=== PATIENT | male | born 1940 | race Asian ===

== ENCOUNTER 2018-08-10 01:58 | Inpatient (IN) | payer OTHER ==
[~2018-08-10] VITALS: Ht 175.3 cm; Wt 49.0 kg
[2018-08-10] VITALS (10 sets, daily range): BP systolic 76–121; BP diastolic 41–75
--- NOTE | 2018-08-10 02:30 | NUR ---
PATIENT WAS BROUGHT IN BY EMS, FAMILY CALLED [phone] BECAUSE PATIENT HAS TEMP OF 104 AT HOME AND OXYGEN LEVEL WAS LOW PER FAMILY. PATIENT ARRICVED WITH BREATHING TX IN PROGRESS, SATURATION 94 % ON 6 L OXYGEN VIA MASK. SALINE LOCK IN PLACE . FLORES IN PLACE. CHANGE ON SUNDAY PER FAMILY. G-TUBE IN PLACE.
--- NOTE | 2018-08-10 02:45 | NUR ---
URINE COLLECTED AND SENT TO THE LAB. PATIENT MEDICATED WITH TYLENOL VIA THE G-TUBE.
--- NOTE | 2018-08-10 03:00 | NUR ---
CALLED TO Pt'S ROOM TO SUCTION PER FAMILY REQUEST. LOCKED JAW IS NOTED, Pt IS THEN NTS'D USING STERILE TECHNIQUE. SMALL/MODERATE AMOUNT OF THICK CLEAR AND WHITE SPUTUM OBTAINED. FAMILY REQUESTS ORAL SUCTION, I THEN MASSAGED Pt'S JAW TO RELAX AND OPEN MOUTH, Pt RELAXES JAW AND Pt IS SUCTIONED WITH YANKAUER WITH NO RETURN. Pt'S DAUGHTER STATES THAT SHE USES A RED MAKEDA TO SUCTION Pt EVERY TIME HE COUGHS, RED MAKEDA BROUGHT TO FAMILY, FAMILY REQUESTS TO USE EQUIPMENT FROM HOME, PERMISSION OBTAINED FROM PHYSICIAN. Pt WAS RECEIVED ON AERSOL MASK AND WAS CHANGED TO A 6L SIMPLE MASK BY MYSELF. RN NOTIFIED. NO RESP DISTRESS NOTED, WILL MONITOR.
[2018-08-10 03:08] LABS: PLATELET COUNT 161 x10^3mcL (130-400)
[2018-08-10 03:09] LABS: microscopic required? YES; urine erythrocyte 1+ (NEGATIVE)
[2018-08-10 03:12] LABS: RED CELL DISTRIBUTION WIDTH 31.3 % (11.5-14.5)
--- NOTE | 2018-08-10 03:17 | NUR ---
FAMILY REQUESTED RESPIRATORY TO SUCTION THE PATIENT RT WAS CALLED,PATIENT SUCTION. PATIENT HAS A CONGESTED COUGH.
--- NOTE | 2018-08-10 03:19 | NUR ---
BLOOD WAS DRAWN BY LAB, FAMILY EXPRESS CONCERN, PATIENT HAD ANEAMIA AND TOO MUCH BLOOD IS TAKE. SPOKE TO THE FAMILY.
--- NOTE | 2018-08-10 03:25 | NUR ---
Pt'S SPO2 98% ON 5LPM SIMPLAE MASK.
[2018-08-10 03:29] LABS: ATYPICAL LYMPH 1 %; BAND NEUTROPHIL 3 % (0-10); MONOCYTE 1 % (0-7); SEGMENTED NEUTROPHILS 93 % (37-75)
[2018-08-10 03:33] LABS: ovalocyte/elliptocyte 1+; rbc morphology (normal/abnorm) ABNORMAL (NORMAL); schistocyte (helmet cell) 1+; target cell (codocyte) 1+; tear drop cell (dacryocyte) 1+
[2018-08-10 03:34] LABS: PLATELET MORPHOLOGY PLATELETS NORMAL
[2018-08-10] MEDS ORDERED: ROB1 PO (04:15)
[2018-08-10] MEDS ORDERED: COREG3.125 MG GT (04:16)
[2018-08-10] MEDS ORDERED: PHARMASSURE FO0.4 MG (04:17)
[2018-08-10] MEDS ORDERED: LIPI10 PO (04:17)
[2018-08-10] MEDS ORDERED: SOD1 PO (04:18)
[2018-08-10 05:16] LABS: ALBUMIN 3.3 g/dL (3.4-5.0); ALKALINE PHOSPHATASE 54 U/L (46-116); ALT/SGPT 10 U/L (14-59); AST/SGOT 15 U/L (15-37); BILIRUBIN TOTAL 2.06 mg/dL (0.20-1.00); CALCIUM 8.6 mg/dL (8.5-10.1); CHLORIDE SERUM 87 mmol/L (98-107); CREATININE SERUM 0.7 mg/dL (0.6-1.0); GLUCOSE SERUM 172 mg/dL (74-106); POTASSIUM SERUM 4.8 mmol/L (3.5-5.1); TOTAL PROTEIN, SERUM 7.4 g/dL (6.4-8.2)
[2018-08-10 05:18] LABS: SODIUM SERUM 123 mmol/L (136-145)
--- NOTE | 2018-08-10 05:40 | NUR ---
ABG DRAWN ON RA, SPO2 96%, Pt PLACED ON 2L N/C. RN NOTIFIED.
--- NOTE | 2018-08-10 05:45 | NUR ---
RECEIVED PT FROM ED VIA GURNEY ACCOMPANIED BY NURSE. DAUGHTERS, STEPHANI AND ALEX AT BEDSIDE. 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 PULSES PRESENT AND EQUAL THROUGHOUT, NO EDEMA NOTED. BREATHING ON 2L NC, SHALLOW AND EQUAL, O2 SAT 93% LUNGS SOUNDS CONGESTED WITH CRACKLES. DAUGHTER STATES PT USES O2 AT HOME, ANYWHERE FROM 1L-10L, TITRATED BY FAMILY DEPENDING ON HIS O2 SAT. ABD SOFT AND FLAT WITH ACTIVE BOWEL SOUNDS. PEG TUBE IN PLACE, STOMA WNL. DAUGHTER STATES PT RECEIVED BOLUS FEEDING OF PORRIDE OF GLUCERNA Q2-3H. LAST BM YESTERDAY, 08/09/18, NORMAL. FLORES CATH IN PLACE DRAINING YELLOW URINE TO GRAVITY. DAUGHTER STATES PT HAS A HOME HEALTH NURSE THAT CHANGES THE FLORES Q2 WEEKS, LAST CHANGED ON Sunday08/06/18. PT IS BED BOUND SINCE STROKE, TOTAL CARE, TURN Q2H, AIR MATTRESS IN PLACE. SKIN TEAR/OPEN WOUND TO COCCYX, DAUGHTER STATES THEY USE Z GAURD AT HOME. WHILE ATTEMPTING TO TAKE A PHOTO, PT BEGAN TO DESATURATE AND DAUGHTER REQUESTED TO HOLD OFF AT THIS TIME AND RAISE HIM UP, WHICH WAS DONE. IV TO LH IN PLACE, DRY, PATENT, INTACT. CONNECTED TO VANCO AND SECOND LITER NS BOLUS CONTINUED FROM ED, NO PAIN, REDNESS, OR SWELLING NOTED. FAMILY ORIENTED TO ROOM AND CALL LIGHT. BED IN LOWEST POSITION WITH SIDE RAILS UP X2. COMFORT AND SAFETY MEASURES INITIATED.
--- NOTE | 2018-08-10 05:54 | NUR ---
REPORT WAS GIVEN. ANTIBIOTIC STARTED. PATIENT TRANSPORTED TO ROOM 210A. RESPIRATORY DECREASED OXYGEN T 2 LN/C ON THE ABG RESULT.
--- NOTE | 2018-08-10 06:40 | NUR ---
DR. CHAD RAGSDALE AWARE, B/P AFTER 2ND NS BOLUS 76/41. ORDERS FOR ANOTHER 1L NS BOLUS AND CARRIED OUT AT THIS TIME. PT ON 8L NC, O2 SAT 98% DR. MARROQUIN AT BEDSIDE AT THIS TIME.
--- NOTE | 2018-08-10 06:45 | NUR ---
PT'S DAUGHTER REQUESTING FOR MORE BLANKETS, ONE BLANKET PROVIDED. EDUCATED NOT TO APPLY TOO MANY BLANKETS DUE TO KEEPING COOLING MEASURES IN PLACE SINCE PT'S TEMP WAS ELEVATED. DAUGHTER VERBALIZED UNDERSTANDING
--- NOTE | 2018-08-10 07:20 | NUR ---
PT'S DAUGHTER AT BEDSIDE TITRATED O2 TO 4L NC, O2 SAT 99%
[2018-08-10 07:24] LABS: IRON 29 ug/dL (65-170); TOTAL IRON BINDING CAPACITY 83 ug/dL (250-450)
--- NOTE | 2018-08-10 07:40 | NUR ---
PATIENT RESTING IN BED. NO RESPIRATORY DISTRESS NOTED. PATIENT ON 4L NASAL CANNULA. PATIENT IS APHASIC, UNABLE TO ASSESS ORIENTATION, PATIENT APPEARS ALERT. TELE MONITOR IN PLACE. PATIENT SOUNDS CONGESTED, SUCTIONED NEEDED. PT IS ON PEG TUBE FEEDINGS, GLUCERNA GIVEN AT 3OML/HR. PATIENT HAS A FLORES DRAINING TO GRAVITY. GENERALIZED WEAKNESS NOTED, PATIENT HAS HX OF HEMORRHAGIC STROKE, L SIDE PARALYSIS. PATIENT IS ON AIR MATRESS, PATIENT REPOSITION Q2HR. NS IV INFUSING TO L HAND AT 100ML/HR, NO ERYTHEMA, EDEMA, OR PAIN NOTED. CALL LIGHT WITHIN REACH, BED IN LOW POSITION, WILL CONTINUE TO MONITOR FOR CHANGES.
--- NOTE | 2018-08-10 08:10 | NUR ---
1L BOLUS DONE, B/P 101/53
--- NOTE | 2018-08-10 08:55 | NUR ---
PATIENT RECEIVED A 1L BOLUS FROM PREVIOUS RN JEROD, REASSESSED PATIENT VITAL SIGNS. PATIENT BP 108/55, HR 96, MAP 75. PATIENT IS STABLE AT THIS TIME, NO ACUTE DISTRESS NOTED. WILL CONTINUE TO MONITOR FOR CHANGES.
[2018-08-10 09:21] LABS: BASOPHIL % 0 % (0-2); PLATELET COUNT 89 x10^3mcL (130-400)
[2018-08-10 09:37] LABS: CALCIUM 7.4 mg/dL (8.5-10.1); CARBON DIOXIDE 23.3 mmol/L (21-32); CHLORIDE SERUM 95 mmol/L (98-107); CREATININE SERUM 0.6 mg/dL (0.7-1.3); GLUCOSE SERUM 147 mg/dL (74-106); MAGNESIUM 1.7 mg/dL (1.8-2.4); PHOSPHOROUS 2.2 mg/dL (2.5-4.9); POTASSIUM SERUM 3.9 mmol/L (3.5-5.1); SODIUM SERUM 127 mmol/L (136-145)
--- NOTE | 2018-08-10 09:40 | NUR ---
FAMILY TITRATED PATIENT NASAL CANNULA FROM 4L TO 3L, PATIENT TOLERATING WELL. PULSE OX 99%. WILL CONTINUE TO MONITOR FOR CHANGES.
--- NOTE | 2018-08-10 13:40 | NUR ---
DR BONILLA AWARE PATIENT NA IS 127, PREVIOUS WAS 123, CL IS 97, PREVIOUS WAS 87, CA IS 7.4,PHOS IS 2.2, AND MAG IS 1.7. DR BONILLA WILL REVIEW LABS AND PLACE ORDERS. WILL CARRY OUT ORDERS.
--- NOTE | 2018-08-10 14:11 | NUR ---
PATIENT RESTING IN BED, NO RESPIRATORY DISTRESS NOTED. FAMILY AT BEDSIDE. CALL LIGHT WITHIN REACH, BED IN LOW POSITION, WILL CONTINUE TO MONITOR.
--- NOTE | 2018-08-10 15:17 | NUR ---
PT FAMILY REFUSED TX AT THIS TIME STATED PT DID NOT NEED IT. PT'S DAUGHTER TITRATED O2 TO 0.5L/M ON NC AND HUMIDIFIER WAS ADDED AT THIS TIME. PT IN NO RESPIRATIORY DISTRESS POX 100% ON 0.5L. WILL CONTINUE TO MONITOR.
--- NOTE | 2018-08-10 18:20 | NUR ---
ASSESS PATIENT VITAL SIGNS BP 88/47 HR [address] TIM. WILL CONTINUE TO MONITOR PATIENT.
--- NOTE | 2018-08-10 18:40 | NUR ---
DR GARCÍA AWARE OF PATIENT BP. DR REYNOLDS WILL REVIEW PATIENT CHART. WILL CONTINUE TO MONITOR PATIENT.
--- NOTE | 2018-08-10 19:20 | NUR ---
PATIENT RESTING IN BED, FAMILY AT BEDSIDE. PATIENT BP WAS 93/45 HR 73 MAP 62. NO ACUTE DISTRESS NOTED. DR. REYNOLDS AT BEDSIDE. NS IV INFUSING TO LH AT 100ML/HR, NO REDNESS, SWELLING OR PAIN NOTED. PEG TUBE FEEDING AT 30ML/HR. HOB ELEVATED. ENDORSE REPORT TO NIGHT NURSE.
--- NOTE | 2018-08-10 19:40 | NUR ---
RECEIVED PT IN BED W/ FAMILY MEMBERS AT BEDSIDE. PER FAMILY PT IS ORIENTED TO PERSON,PLACE AND SITUATION. PT IS NON-VERBAL. HE HAS LEFT SIDE WEAKNESS. PT ABLE TO WAVE HIS RT HAND. LUNG SOUNDS CONGESTED. ON O2 AT 1L VIA N/C. W/ PEG TUBE IN PLACE W/ FEEDING OF GLUCERNA AT 30 CC/HR . PT HAS NO C/O PAIN AT THIS TIME. W/ FLORES CATH INTACT DRAINING YELLOW URINE. IVF NS INFUSING AT 100 CC/HR VIA LT HAND. CALL LIGHT W/IN REACH. PT IS ON AIR MATTRESS.
--- NOTE | 2018-08-11 02:10 | NUR ---
GT RESIDUAL CHECKED AND OBTAINED 5 CC. PT APPEARS TO BE SLEEPING COMFORTABLY. FAMILY MEMBERS AT BEDSIDE.
[2018-08-11 05:18] VITALS: BP 122/55
--- NOTE | 2018-08-11 05:19 | NUR ---
PT SLEPT IN LONG INTERVALS. NO EPISODE OF RESP. DISTRESS. HE HAD NO C/O PAIN . PT TOLERATING FEEDING AT 30 CC/HR. HE HAD LIQUID BM X2 THIS SHIFT. IVF NS INFUSING WELL AT 100 CC/HR VIA LT HAND. FLORES CATH INTACT AND PATENT. FAMILY REMAINS AT BEDSIDE.
--- NOTE | 2018-08-11 07:40 | NUR ---
PATIENT IS SLEEPING IN BED, AROUSABLE. NO ACUTE RESP. DISTRESS NOTED, PATIENT ON .5L NASAL CANNULA. TELE MONITOR IN PLACE. PATIENT IS CONGESTED AT TIME, WILL SUUCTION NEEDED. PEG TUBE FEEDING OF GLUCERNA INFUSING AT 30ML/HR. PATIENT TOLERATING TUBE FEEDING, 2ML RESIDUAL NOTED AND REPLACED. FLORES CATHETER DRAINING TO GRAVITY. GENERALIZED WEAKNESS NOTED, WITH LEFT SIDE PARALYSIS, PATIENT REPOSITIONED Q2HR, AIR MATRESS IN PLACE. NS IV INFUSING AT 100 ML/HR TO LEFT HAND, NO REDNESS, SWELLING OR PAIN NOTED. CALL LIGHT WITHIN REACH, BED IN LOW POSITION, WILL CONTINUE TO MONITOR.
[2018-08-11 07:51] LABS: CALCIUM 7.6 mg/dL (8.5-10.1); CARBON DIOXIDE 24.8 mmol/L (21-32); CHLORIDE SERUM 104 mmol/L (98-107); CREATININE SERUM 0.6 mg/dL (0.7-1.3); GLUCOSE SERUM 123 mg/dL (74-106); MAGNESIUM 1.9 mg/dL (1.8-2.4); PHOSPHOROUS 2.3 mg/dL (2.5-4.9); POTASSIUM SERUM 3.5 mmol/L (3.5-5.1); SODIUM SERUM 136 mmol/L (136-145)
[2018-08-11 08:43] LABS: PLATELET COUNT 103 x10^3mcL (130-400); RED CELL DISTRIBUTION WIDTH 32.1 % (11.5-14.5)
[2018-08-11 10:03] VITALS: BP 110/50
[2018-08-11 12:23] LABS: ATYPICAL LYMPH 2 %; BAND NEUTROPHIL 0 % (0-10); BASOPHIL 0 % (0-2); MONOCYTE 16 % (0-7); SEGMENTED NEUTROPHILS 56 % (37-75); rbc morphology (normal/abnorm) ABNORMAL (NORMAL)
[2018-08-11 12:24] LABS: target cell (codocyte) 3+
[2018-08-11 13:31] VITALS: BP 120/57
--- NOTE | 2018-08-11 15:01 | NUR ---
PATIENT RESTING IN BED, NO ACUTE DISTRESS NOTED AT THIS TIME. PATIENT ON .5L NASAL CANNULA. FAMILY AT BEDSIDE. CALL LIGHT WITHIN REACH, BED IN LOW POSITION. WILL CONTINUE TO MONITOR PATIENT.
[2018-08-11 17:07] VITALS: BP 110/54
--- NOTE | 2018-08-11 17:24 | NUR ---
PATIENT FAMILY HAD QUESTIONS REGARDING DISCHARGE, DR. BONILLA STATED HE WANTED TO KEEP THE PATIENT OVER FOR OBSERVATION AND POSSIBLY GO HOME TOMORROW MORNING. FAMILY VERBLIZES UNDERSTANDING AND AGREES WITH PATIENTS PLAN OF CARE. WILL CONTINUE TO MONITOR. CALL LIGHT WITHIN REACH, BED IN LOW POSITION.
--- NOTE | 2018-08-11 18:24 | NUR ---
PATIENT RESTING IN BED, NO ACUTE DISTRESS NOTED THROUGH OUT SHIFT. PATIENT IS STABLE. TELE MONITOR IN PLACE. PATIENT ON .5L NC. PEG TUBE FEEDING INFUSING AT 40ML/HR, PATIENT TOLERATING WELL, NO RESIDUAL NOTED. PATIENT ON AIR MATRESS, REPOSTION Q2HR. NS IV INFUSING TO LH, IV PATENT, NO S/S OF INFILTRATION. CALL LIGHT WITHIN REACH, BED IN LOW POSITION, WILL CONTINUE TO MONITOR AND ENDORSE REPORT TO NIGHT NURSE.
--- NOTE | 2018-08-11 19:15 | NUR ---
RECEIVED REPORT FROM LAKSHMI TAYLOR. WILL CONTINUE TREATMENT AND CARE.
--- NOTE | 2018-08-11 19:35 | NUR ---
ASSESSED PT. PT IS APHASIC BUT ABLE TO GESTURE TO QUESTIONS. BREATHING EVEN AND UNLABORED. NO SOB NOTED. PT ON 0.5L NC. ON TELE MONITOR #25, NSR. NO S/SX OF PAIN OR DISCOMFORT NOTED. PULSES PALPABLE, CAP REFILL < 3 SEC. BS ACTIVE X 4. PT HAS PEG CONTINUOUS FEEDING OF GLUCERNA 1.2 RUNNING AT 40CC/HR WITH NO RESIDUAL NOTED. PT TOLERATING FEEDING WELL. GENERALIZED WEAKNESS. PT HAS SKIN TEAR TO COCCYX. FLORES CATHETER IN PLACE DRAINING VIA GRAVITY YELLOW URINE. IV FLUIDS OF NS 100C/HR TO L HAND. NO S/SX OF INFILTRATION OR PHLEBITIS NOTED. PT CALM AND FAMILY AT BEDSIDE. BED IN LOW POSITION. CALL LIGHT WITHIN REACH. WILL CONTINUE TO MONITOR.
[2018-08-11 21:08] VITALS: BP 122/65
--- NOTE | 2018-08-12 00:24 | NUR ---
PT HAS NO RESIDUAL NOTED TO TUBE FEEDING. INCREASED GLUCERNA 1.2 FROM 40CC TO 50CC/HR. PT TOLERATING FEEDING WELL.
--- NOTE | 2018-08-12 05:24 | NUR ---
PT RESTING COMFORTABLY IN BED. NO S/SX OF PAIN OR DISCOMFORT THROUGHOUT SHIFT. NO SOB OR RESPIRATORY DISTRESS NOTED. NO ADVERSE REACTIONS TO MEDICATIONS. IV FLUIDS OF NS REMAIN INFUSING AT 100CC/HR, INTACT AND PATENT. NO S/SX OF INFILTRATION OR PHLEBITIS NOTED. SUCTION CANNITER AND TUBING CHANGED. ALL NEEDS MET AND ANTICIPATED. FAMILY AT BEDSIDE. BED IN LOW POSITION. CALL LIGHT WITHIN REACH. WILL ENDORSE TO ONCOMING NURSE.
[2018-08-12 05:28] VITALS: BP 144/85
[2018-08-12 06:44] LABS: CALCIUM 7.9 mg/dL (8.5-10.1); CARBON DIOXIDE 25.1 mmol/L (21-32); CHLORIDE SERUM 105 mmol/L (98-107); CREATININE SERUM 0.6 mg/dL (0.7-1.3); GLUCOSE SERUM 145 mg/dL (74-106); MAGNESIUM 1.9 mg/dL (1.8-2.4); PHOSPHOROUS 2.2 mg/dL (2.5-4.9); POTASSIUM SERUM 3.7 mmol/L (3.5-5.1); SODIUM SERUM 138 mmol/L (136-145)
[2018-08-12 06:56] LABS: PLATELET COUNT 108 x10^3mcL (130-400); RED CELL DISTRIBUTION WIDTH 32.8 % (11.5-14.5)
--- NOTE | 2018-08-12 07:28 | NUR ---
GAVE REPORT TO SIMON TAYLOR. ALL QUESTIONS AND CONCERNS ADDRESSES.
[2018-08-12 08:25] VITALS: BP 148/80
[2018-08-12 12:05] LABS: BAND NEUTROPHIL 2 % (0-10); BASOPHIL 0 % (0-2); MONOCYTE 10 % (0-7); SEGMENTED NEUTROPHILS 79 % (37-75)
[2018-08-12 12:06] LABS: PLATELET MORPHOLOGY PLATELETS DECREASED; rbc morphology (normal/abnorm) ABNORMAL (NORMAL); target cell (codocyte) 1+
[2018-08-12 12:35] VITALS: BP 123/71
--- NOTE | 2018-08-12 14:15 | NUR ---
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) w R hemiparesis and L hemiplegia, Hep B, Thalassemia trait, HTN, Gout, BPH PSHx: Cystoscopy (negative) Labs: BG 145H, CA 7.9L, HGB 7.9L Meds: Colace, ferrous sulfate 300 mg liquid, folic acid 1mg, lipitor Diet: Gastrostomy tube: Glucerna 1.2 goal rate: 65 ml/hr, Free water flush 100ml q4hrs PO Intake: 780 ml of TF Ht:175.26 cm (69 in) Wt: 48.9 kg (107.6#0) BMI: 15.9 kg/m2 IBW: 160# %IBW: 67 UBW: 109# Age: 78/M Food Allergies: none Skin: skin tear noted to olayinka Kan: 14 Edema: none GI: Last BM: 08/11/18 Per H&P, pt is a 78 year old male admitted on 08/10/18 with oxygen saturation below 88%, difficulty breathing and elevated mucus production. Pt visit, pt was awake and patient's daughter was at bedside. Per daughter, patient had liquid bowel movement this morning and has an episode of diarrhea two days ago. Pt is currently getting Glucerna 1.2 @ 65 ml/hr, free water flush of 100 ml q 4 hrs and is tolerating it well. Patient's daughter reported that she is concerned about soy in Glucerna can impact patient DX of Gout. She has been given 50% of homemade rice based liquid for that reason and 50% Glucerna. Problem with: N/ V/ D/ C: none Problems with: Chewing: Swallowing: pt on G tube Recent wt change: 2 kgs %wt change: 1.3 % (unaware of duration) Vitamin/Supplement use: vitamin C, zinc, B12, Folic acid, B1, MVI, probiotic Special diet at home: on Tube feeding Physical activity: bed bound Education: No education given at this time. Estimated Nutritional Needs Based on actual body weight 48.9 kg Energy: 1467- 1712 kcal/d (30-35 kcal/kg-weight gain) Protein: 59- 73 g/d (1.2-1.5g/kg)-maintenance and preservation of lean body mass Fluid: 4498-5408 ml/d (1 ml/kcal-fluid balance) or per doctor Nutrition Diagnosis 1. Underweight related to medical condition as evidenced by BMI of 15.9 kg/m2 Intervention 1. Continue current TF program: Glucerna 1.2 @ 65 ml/hr. Provides 1870 kcal and 90 g of protein Monitor/Evaluate Goal: TF meeting at least 75 % of estimated needs Monitor: TF tolerance, Labs, GI function, check for residuals. F/U in 2-3 days as high risk. Due 08/14-08/15
--- NOTE | 2018-08-12 14:16 | NUR ---
1. Continue current TF program: Glucerna 1.2 @ 65 ml/hr. Provides 1870 kcal and 90 g of protein
--- NOTE | 2018-08-12 19:46 | NUR ---
LYING ON RIGHT SIDE. ON AIR MATTRESS POSITIONED W PILLOWS. NS INFUSING 100 CC HOUR. FAMILY CONCERNED ABOUT PTS BP GOING UP. SYSTOLIC 138. PT HAS HAD CVA IN PAST AND FAMILY IS CONCERNED. TURNED OFF PUMP AND WILL TALK TO [place] ABOUT CONTINUING INFUSION OR NOT. RECEIVING GT FEEDINGS. GLUCERNA 65 CC HOUR INFUSING 3 CC RESIDUAL. FLORES DRAINING YELLOW URINE. DOES NOT APPEAR TO BE IN PAIN. FAMILY PINA BEDSIDE AND VERY HELPFUL. HOB ELEVATED 35 DEGREES. ON AIR MATTRESS. CALL LIGHT WITHIN REACH.
--- NOTE | 2018-08-12 19:54 | NUR ---
PT HAS BEEN RESTING QUIETLY WITH MULTIPLE FAMILY FAMILY MEMBERS AT BEDSIDE, VERY ATTENTIVE. CONTINUE NS 10 AND ZOSYN IV ABX. GOOD OUTPUT IN FLORES. TOTAL CARE. TOLERATES GT FEEDINGS. VSS. CALL LIGHT WITHIN REACH OF FAMILY MEMBERS.
--- NOTE | 2018-08-12 20:00 | NUR ---
PT SEEN, HOB, RESTING IN BED WITH EYES CLOSED, APHASIC WITH HX OF CVA, BREATHING EVEN AND UNLABORED ON O2 2L VIA NC WITH NO RESP DISTRESS NOTED, LUNG SOUNDS DIMINISHED WITH EXP WHEEZING, RT PROTOCOL, ON TELE#25 NSR, IVF INFUSING WELL, PULSES PALPABLE, EDEMA NOTED TO BUE, GENERALIZED WEAKNESS, TOTAL CARE, ON AIR MATTRESS, ABD SOFT AND FLAT WITH ACTIVE BS, NO BM AT THIS TIME, ON G-TUBE FEEDING GLUCERNA 1.2 @ 65 ML/HR, WITH RESIDUAL 10 ML, ASP PRECAUTION IN PLACE, FLORES VIA GRAVITY DRAINING YELLOW URINE, NO DISTRESS NOTED, WILL KEEP TO MONITOR.
[2018-08-12 20:51] VITALS: BP 144/70
--- NOTE | 2018-08-13 | NUR ---
ROUNDS MADE, PT HOB, ASLEEP AND APPEARS COMFORTABLE, BREATHING EVEN AND UNLABORED ON O2 2L VIA NC WITH HUMIDIFIER, PT IS TOLERATING WELL WITH G-TUBE FEEDING @ 65 ML/HR, NO RESIDUAL NOTED.
--- NOTE | 2018-08-13 04:00 | NUR ---
ROUNDS MADE, HOB AT 60 DEGREES, BREATHING EVEN AND UNLABORED ON O2 2L VIA NC, TOLERATING WELL WITH G-TUBE FEEDING, NO RESIDUAL NOTED, NO DISTRESS NOTED, WILL KEEP TO MONITOR.
[2018-08-13 05:03] VITALS: BP 128/75
--- NOTE | 2018-08-13 06:28 | NUR ---
PT SEEN, RESTING IN BED WITH EYES CLOSED, BREATHING EVEN AND UNLABORED ON O2 2L VIA NC WITH NO RESP DISTRESS OR SOB NOTED, HAD ONE TIME SMALL LOOSE BM DURING THE SHIFT, GOOD ELIA CARE GIVEN, ON AIR MATTRESS, SUCTION PRN, FAMILY MEMBERS AT BEDSIDE, NO DISTRESS NOTED, WILL KEEP TO MONITOR.
[2018-08-13 06:34] LABS: PLATELET COUNT 162 x10^3mcL (130-400)
[2018-08-13 06:46] LABS: RED CELL DISTRIBUTION WIDTH 33.2 % (11.5-14.5)
[2018-08-13 06:48] LABS: CALCIUM 8.1 mg/dL (8.5-10.1); CARBON DIOXIDE 27.7 mmol/L (21-32); CHLORIDE SERUM 101 mmol/L (98-107); CREATININE SERUM 0.7 mg/dL (0.7-1.3); GLUCOSE SERUM 186 mg/dL (74-106); POTASSIUM SERUM 4.2 mmol/L (3.5-5.1); SODIUM SERUM 134 mmol/L (136-145)
--- NOTE | 2018-08-13 07:20 | NUR ---
RECEIVED PATIENT FROM DRESSING MACHINE OPERATOR NURSE. PATIENT IS RESTING WITH BOTH EYES CLOSED, AROUSABLE. TELE#25, SR, HR 87. PATIENT IS ON 2L NC, BREATHING APPEARS EVEN AND UNLABORED. AUDIBLE EXP WHEEZES NOTED, PATIENT ON RT PROTOCOL. LAST BM THIS AM, LARGE AND SOFT. FLORES CATHETER IN PLACE DRAINING YELLOW URINE TO GRAVITY WELL. PATIENT IS ON AIR MATTRESS WITH HOB ELEVATED, ASPIRATION PREC IN PLACE. IV NOTED TO RFA, IVF INFUSING WELL ORDERED, NO S/S ERYTHEMA AT SITE. TUBE FEEDING: GLUCERNA 1.2 INFUSING WELL AT 65ML/HR WITH FWF 100 Q4H, INFUSING WELL TO G-TUBE SITE LUQ. CALL LIGHT WITHIN EASY REACH. FALL AND SAFETY PREC IN PLACE. FAMILY AT THE BEDSIDE, HIGHLY INVOLVED IN CARE. ALL QUESTIONS ANSWERED AT THIS TIME. EXPLAINED PLAN OF CARE AND DISCUSSED GOALS FOR TODAY WITH FAMILY. WILL CONTINUE PLAN OF CARE.
--- NOTE | 2018-08-13 07:25 | NUR ---
BEDSIDE HANDOFF REPORT DONE WITH ADALID-RN, ALL QUESTIONS ANSWERED AND CONCERNS ADDRESSED.
--- NOTE | 2018-08-13 08:35 | NUR ---
TUBE FEEDING CHANGED AT THIS TIME. RESIDUAL <10. PATIENT TOLERATING WELL. RESUMED GLUCERNA 1.2 AT 65ML/HR WITH FWF 100CC Q4H. ASPIRATION PRECAUTIONS IN PLACE. WILL CONTINUE TO MONITOR.
[2018-08-13 10:06] VITALS: BP 114/58
--- NOTE | 2018-08-13 11:33 | NUR ---
TELE MONITOR #25 REMOVED FROM PATIENT AT THIS TIME.
--- NOTE | 2018-08-13 11:36 | NUR ---
P.T. NOTES AFTER MULTIPLE ATTEMPTS FAMILY REFUSED P.T. FOR PATIENT, STATES HE HASN'T BEEN SLEEPING WELL THROUGHOUT THE NIGHT AND NEEDS SOME REST, RN MADE AWARE.
[2018-08-13 12:07] LABS: ATYPICAL LYMPH 3 %; BAND NEUTROPHIL 3 % (0-10); BASOPHIL 0 % (0-2); MONOCYTE 8 % (0-7); SEGMENTED NEUTROPHILS 76 % (37-75)
[2018-08-13 12:10] LABS: PLATELET MORPHOLOGY PLATELETS DECREASED; rbc morphology (normal/abnorm) ABNORMAL (NORMAL); target cell (codocyte) 2+
--- NOTE | 2018-08-13 12:58 | NUR ---
PATIENT RESTING EASY WITH FAMILY AT THE BEDSIDE. ASPIRATION PREC IN PLACE. PATIENT HAS REMAINED STRICT NPO STATUS. FLORES REMAINS DRAINING URINE TO GRAVITY WELL. IVF INFUSING WELL ORDERED. TUBE FEEDING REMAINS AT 65ML/HR WITH RESIDUAL <10. WILL CONTINUE TO MONITOR.
[2018-08-13] MEDS ORDERED: AMERINET CHOICE1 PD3 IV (14:18)
[2018-08-13 15:53] VITALS: BP 114/58
--- NOTE | 2018-08-13 16:16 | NUR ---
PT WAS EVALUATED FOR DYSPHAGIA. PT WAS POCKETING FOR ALL THE DIET CONSISTENCY. CONTINUE WITH NPO STATUS. RECOMMENDATION ALTERNATE MODE OF FEEDING.
[2018-08-13 16:48] VITALS: BP 113/68
--- NOTE | 2018-08-13 17:31 | NUR ---
SHELBI BYERS SPEAKING WITH FAMILY OVER PHONE AT THIS TIME. PER SHELBI BYERS PATIENT CLEARED BY PULMONOLOGY FOR DC. FAMILY VERBALIZED UNDERSTANDING AT THIS TIME. FACE BOSS OLAYINKA SCHMIDT.
[2018-08-13] MEDS ORDERED: LEVAQUIN750 MG PO (17:47)
--- NOTE | 2018-08-13 18:22 | NUR ---
FLORES CATHETER TUBING AND BAG CHANGED AT THIS TIME PER FAMILY REQUEST. FLORES CARE GIVEN. EDUCATION GIVEN TO FAMILY ON FLORES CARE. PATIENT TOLERATED WELL.
--- NOTE | 2018-08-13 18:40 | NUR ---
PATIENT AND FAMILY GIVEN ALL DC INSTRUCTIONS AT THIS TIME. ALL QUESTIONS ANSWERED REGARDING DC INSTRUCTIONS. ALL NEW PRESCRIPTIONS GIVEN TO FAMILY. DC DOCUMENTS SIGNED BY DAUGHTER, STEPHANI DAVENPORT. 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 PATIENT FLORES TO STAY IN PLACE FOR DC. IV TO BE DC'D. ALL PERSONAL BELONGINGS GATHERED AND WITH FAMILY TO BE TAKEN HOME. PATIENT CARE TO BE ENDORSED TO SKETCH LINER NURSE KM.
--- NOTE | 2018-08-13 19:00 | NUR ---
PT SEEN LYING IN BED, HAS HIS EYES CLOSED, OPENS EYES ON VERBAL STIMULI. W/ PEG TUBE, GLUERCNA ONGOING AT 65 ML/HR. W/ FLORES CATHETER DRAINING W/ YELLOW COLORED URINE. W/ IV SITE ON THE RFA, PATENT AND INTACT. FAMILY AT BEDSIDE. AWAITING FOR [facility] BUSINESS INTERN SCHEDULED AT 2000H. WILL CONT TO MONITOR
--- NOTE | 2018-08-13 19:14 | NUR ---
FAMILY REFUSED DC PICTURES OF COCCYX.
--- NOTE | 2018-08-13 19:45 | NUR ---
IV ON THE RFA GAUGE 20 REMOVED, CATHETER INTACT. TUBE FEEDING STOPPED, PEG TUBE ON THE ABDOMEN CLAMPED. W/ FLORES CATHETER DRAINING W/ YELLOW COLORED URINE. [facility] AT BEDSIDE TO OUTCOMES SPECIALIST THE PT.
--- NOTE | 2018-08-13 19:59 | NUR ---
PT PICKED UP BY [facility] VIA STRETCHER, PT DISCHARGED HOME.
== END 2018-08-13 20:04 | disposition home or self-care (01) | DRG 871 ==
LOC: ED 01:58 → DU 04:03 → EDSEX 04:03 → DU 04:51 → MU 08-13 11:31
PROVIDERS: Emergency Medicine; Internal Medicine; ADMIT General Practice
DX: A41.9 Sepsis, unspecified organism (principal); J69.0 Pneumonitis due to inhalation of food and vomit; G93.41 Metabolic encephalopathy; J96.01 Acute respiratory failure with hypoxia; N17.0 Acute kidney failure with tubular necrosis; N39.0 Urinary tract infection, site not specified; I10 Essential (primary) hypertension
CPT/HCPCS: 36600; 92526-GN; 92610; C1758; J2543; J3370; J7030; J7040; J7050; J7620; Q0092